=== PATIENT | male | born 2005 | race Caucasian/White ===

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

== ENCOUNTER 2025-01-13 19:51 | Emergency (ER) | payer MEDICAID, OTHER ==
[2025-01-13] MEDS ORDERED: Proparacaine 0.5% Ophth Soln 15 ML Bottle ONE (20:02)
[2025-01-13] MEDS: Proparacaine 0.5% Ophth Soln 15 ML Bottle EYELF ONE (20:05)
[2025-01-13] MEDS: Sodium Chloride 0.9% 1,000 ML IRR ONE (20:15)
[2025-01-13] MEDS ORDERED: Sodium Chloride 0.9% 1,000 ML IRR SCH (20:45)
[2025-01-13] MEDS ORDERED: Ciprofloxacin 0.3% Ophth Soln 2.5 ML Bottle ONE (21:14)
[2025-01-13] MEDS: Ciprofloxacin 0.3% Ophth Soln 2.5 ML Bottle EYELF ONE (21:19)
== END 2025-01-13 21:25 | disposition home or self-care (01) ==
LOC: JP.ED 19:51
DX: T65.91XA Toxic effect of unspecified substance, accidental (unintentional), initial encounter (principal); H10.212 Acute toxic conjunctivitis, left eye; H16.002 Unspecified corneal ulcer, left eye; Z86.16 Personal history of COVID-19
CPT/HCPCS: 99283; A9270; J7030